=== PATIENT | female | born 1950 | race Caucasian/White ===

== ENCOUNTER 2020-12-27 11:27 | Emergency (ER) | payer MEDICARE, SELFPAY ==
[2020-12-27 11:41] VITALS: BP 135/82; PULSE 88; RESP 14; TEMP 36.4; O2SAT 99
--- NOTE | 2020-12-27 11:43 | ECG_ITS ---
Measurements Intervals [place] Rate: 64 P: 61 ND: 193 QRS: -46 QRSD: 98 T: -6 QT: 435 QTc: 450 Interpretive Statements SINUS RHYTHM LEFT AXIS DEVIATION CANNOT RULE OUT SEPTAL INFARCT, AGE INDETERMINATE BORDERLINE T WAVE ABNORMALITY- INFERIOR LEADS BASELINE ARTIFACT- I, II, III, AVR, AVL, AVF ABNORMAL ECG Electronically Signed On 12-27-2020 11:57:49 CDT by Kain Lynne D.O.
[2020-12-27 12:46] LABS: Anion Gap 8 mmol/L (8-16); Blood Urea Nitrogen 18 mg/dL (7-17); Calcium 9.6 mg/dL (8.4-10.2); Carbon Dioxide 25 mmol/L (22-30); Chloride 101 mmol/L (98-107); Estimated CRCL calculation 62 ml/min; Estimated Glomerular Filt Rate > 60; Glucose 142 mg/dL (65-110); Potassium 4.7 mmol/L (3.4-5.0); Sodium 134 mmol/L (137-145)
[2020-12-27] MEDS: SODIUM CHLORIDE 0.9% IV 1,000 ML 999 ML IV CONT (13:07)
[2020-12-27] MEDS: PROMETHAZINE HCL 25 MG/ML AMPUL 12.5 MG IV PUSH (13:08)
[2020-12-27 13:16] VITALS: BP 141/70; PULSE 62; RESP 18
[2020-12-27 13:31] LABS: Basophils Percent Auto 0.2 % (0.2-1.2); Eosinophils Percent Auto 0.1 % (0-4.4); Hematocrit 40.1 % (37.0-47.0); Hemoglobin 13.8 g/dL (12.0-15.0); Immature Granulocyte Absolute 0.04 K/mm3 (0.00-0.031); Immature Granulocyte Percent A 0.4 % (0-0.5); Lymphocytes Absolute Auto 0.56 K/mm3 (0.9-3.2); Lymphocytes Percent Auto 5.7 % (18.3-44.2); Mean Corpuscular HGB Conc 34.4 g/dl (32-36); Mean Corpuscular Hemoglobin 32.4 pg (26-34); Mean Corpuscular Volume 94.1 fl (80-100); Monocytes Absolute Auto 0.4 K/mm3 (0.1-0.6); Monocytes Percent Auto 3.6 % (2.6-8.5); Neutrophils Absolute Auto 8.8 K/mm3 (1.3-6.7); Platelet Count Result 231 k/mm3 (150-375); Red Blood Count 4.26 M/mm3 (4.2-5.4); Red Cell Distribution Width 12.9 % (11.5-14.5); White Blood Count 9.7 K/mm3 (4.5-10.0)
[2020-12-27 14:08] VITALS: BP 149/87; PULSE 124; RESP 16; O2SAT 96
--- NOTE | 2020-12-27 14:46 | ED.GENADULT ---
HPI - General Adult General Chief complaint: Dizziness Stated complaint: dizzy/vomiting Time Seen by Provider: 12/27/20 12:11 History of Present Illness HPI narrative: Patient is a 62-year-old female who presents ER with dizziness. Patient has history of BPPV. She reports she was bending over to get dressed when she had sudden onset spinning dizziness. Associate with nausea and vomiting. She has some mild anxiousness. She is taking meclizine without improvement. She is also taken Zofran without improvement. Denies fevers or chills or sweats. No focal weakness in arm or leg. No slurred speech. Related Data Home Medications Medication Instructions Recorded Confirmed apixaban [Eliquis] mg 12/27/20 flecainide 12/27/20 meclizine mg 12/27/20 ondansetron 12/27/20 Allergies Allergy/AdvReac Type Severity Reaction Status Date / Time Sulfa (Sulfonamide Allergy Hives Verified 12/27/20 12:39 Antibiotics) Review of Systems Review of Systems: All systems reviewed & are unremarkable except as noted in HPI and below Constitutional: Constitutional: Denies chills, Denies fever(s) and Denies weakness ENT: Reports dizziness, Denies nasal congestion and Denies sore throat Cardiovascular: Cardiovascular: Denies chest pain and Denies radiating jaw, neck or arm pain Gastrointestinal: Gastrointestinal: Denies abdominal pain, Reports nausea and Reports vomiting Neurologic: Denies headache(s), Denies focal weakness and Denies numbness PMFSH Past Medical History Medical History (Updated 12/27/20 @ 16:04 by Owen Aviles MD) Atrial fibrillation BPPV (benign paroxysmal positional vertigo) Surgical History Surgical History (Updated 12/27/20 @ 14:48 by Owen Aviles MD) No pertinent past surgical history Social History Social History (Updated 12/27/20 @ 14:48 by Owen Aviles MD) Smoking status: Never smoker Exam Narrative: GENERAL: Uncomfortable-appearing, well-nourished, and actively vomiting. HEAD: Normocephalic, atraumatic. EYES: PERRL and EOMI. Left gaze nystagmus. ENT: Mucous membranes moist. CHEST: Clear to auscultation. No respiratory distress. HEART: Regular rate and rhythm. Normal peripheral pulses. EXTREMITIES: Normal range of motion. No edema. SKIN: Warm, dry, no rash. NEURO: Alert and oriented x3. PSYCH: Normal mood and affect. Course Course Emergency Course: Patient feeling improved. After initial evaluation patient was laid back and an Niecy maneuver was performed with significant success. She had some anxiousness after the Phenergan that resolved with Benadryl. Patient ambulatory with a steady gait. Dizziness has decreased tremendously and she is no longer nauseous. Vital Signs Vital signs: Vital Signs Temperature 97.5 F L 12/27/20 11:41 Pulse Rate 88 12/27/20 11:41 Respiratory Rate 14 12/27/20 11:41 Blood Pressure 135/82 12/27/20 11:41 Pulse Oximetry 99 12/27/20 11:41 Temperature 97.5 F L 12/27/20 11:41 Pulse Rate 87 12/27/20 15:30 Respiratory Rate 19 12/27/20 15:30 Blood Pressure 148/70 H 12/27/20 15:30 Pulse Oximetry 100 12/27/20 15:30 Medical Decision Making Vital Signs Vital Signs: Vital Signs Temperature 97.5 F L 12/27/20 11:41 Pulse Rate 88 12/27/20 11:41 Respiratory Rate 14 12/27/20 11:41 Blood Pressure 135/82 12/27/20 11:41 Pulse Oximetry 99 12/27/20 11:41 Temperature 97.5 F L 12/27/20 11:41 Pulse Rate 87 12/27/20 15:30 Respiratory Rate 19 12/27/20 15:30 Blood Pressure 148/70 H 12/27/20 15:30 Pulse Oximetry 100 12/27/20 15:30 Lab Data Result diagrams: 12/27/20 13:22 12/27/20 12:07 Labs: Lab Results 12/27/20 12/27/20 Range/Units 12:07 13:22 WBC 9.7 (4.5-10.0) K/mm3 RBC 4.26 (4.2-5.4) M/mm3 Hgb 13.8 (12.0-15.0) g/dL Hct 40.1 (37.0-47.0) % MCV 94.1 (80-100) fl MCH 32.4 (26-34) pg MCHC 34.4 (32-36) g/dl RD
[2020-12-27 15:00] VITALS: BP 145/80; PULSE 86; RESP 24; O2SAT 100
[2020-12-27] MEDS: diphenhydrAMINE HCl INJ 50 MG/ML VIAL 25 MG IV PUSH (15:05)
[2020-12-27 15:30] VITALS: BP 148/70; PULSE 87; RESP 19; O2SAT 100
== END 2020-12-27 16:24 | disposition home or self-care (01) ==
PROVIDERS: Emergency Provider Emergency Medicine
DX: H81.10 Benign paroxysmal vertigo, unspecified ear (principal); I48.91 Unspecified atrial fibrillation; Z79.01 Long term (current) use of anticoagulants
CPT/HCPCS: 36415; 80048; 85025; 93005; 96361; 96374; 96375; 99284; J1200; J2550; J7030